=== PATIENT | female | born 1995 | race Caucasian/White ===

== ENCOUNTER 2017-05-13 14:31 | Emergency (ER) | payer OTHER ==
[~2017-05-13] VITALS: Ht 152.4 cm; Wt 68.0 kg
[~2017-05-13 14:31] MED LIST: GENT5DRO28 RIGHT EYE
[2017-05-13 14:34] VITALS: Ht 152.4 cm; Wt 68.0 kg
[2017-05-13] MEDS ORDERED: ONDANSETRON (ODT) 4 MG TAB ODT STA (15:53)
[2017-05-13 16:30] LABS: BASOPHILS % 0.2 % (0.0-2.0); EOSINOPHILS % 0.2 % (0.0-7.0); HEMATOCRIT 42.2 % (37.0-47.0); LYMPHOCYTES # 2.9 10^3/ul (0.8-2.9); LYMPHOCYTES % 29.1 % (18.0-55.0); MEAN CORPUSCULAR HEMOGLOBIN 29.9 pg (29.0-33.0); MEAN CORPUSCULAR HGB CONC 33.2 g/dl (32.0-37.0); MEAN CORPUSCULAR VOLUME 90.2 fl (72.0-104.0); MONOCYTE # 0.6 10^3/ul (0.3-0.9); MONOCYTES % 5.7 % (0.0-13.0); NEUTROPHIL # 6.5 10^3/ul (1.6-7.5); NEUTROPHILS % 64.5 % (30.0-74.0); PLATELET COUNT 293 10^3/UL (140-415); RED BLOOD COUNT 4.68 10^6/ul (4.20-5.40); RED CELL DISTRIBUTION WIDTH 12.2 % (11.5-14.5)
[2017-05-13 16:33] LABS: ADD UMIC NO; UR ASCORBIC ACID NEGATIVE (NEGATIVE); UR BILIRUBIN (Dip) NEGATIVE (NEGATIVE); UR BLOOD (Dip) NEGATIVE (NEGATIVE); UR CLARITY CLEAR (CLEAR); UR COLOR STRAW (YELLOW); UR GLUCOSE (Dip) NEGATIVE (NEGATIVE); UR KETONES (Dip) NEGATIVE (NEGATIVE); UR LEUKOCYTE ESTERASE (Dip) NEGATIVE Leu/ul (NEGATIVE); UR NITRITE (Dip) NEGATIVE (NEGATIVE); UR SPECIFIC GRAVITY (Dip) 1.013 (1.003-1.030); UR TOTAL PROTEIN (Dip) NEGATIVE (NEGATIVE); UR UROBILINOGEN (Dip) NEGATIVE (NEGATIVE)
[2017-05-13 16:48] LABS: ALBUMIN 4.8 g/dl (3.3-4.9); ALBUMIN/GLOBULIN RATIO 1.33; BILIRUBIN,INDIRECT 0.1 mg/dl (0-1.1); BILIRUBIN,TOTAL 0.1 mg/dl (0.2-1.3); CALCIUM 9.7 mg/dl (8.4-10.2); CREATININE 0.56 mg/dl (0.44-1.00); POTASSIUM 4.5 mmol/L (3.5-5.1); TOTAL PROTEIN 8.4 g/dl (6.1-8.1)
[2017-05-13] MEDS ORDERED: ONDA8TAB14 PO (16:56)
[2017-05-13] MEDS ORDERED: BISM262O23 PO (16:56)
[2017-05-13] MEDS ORDERED: AZIT500T3 PO (16:56)
--- NOTE | 2017-05-13 16:59 | ERD ---
ER Documentation Chief Complaint Date/Time DATE: 05/13/17 TIME: 16:57 Chief Complaint vomiting x 1 , diarrhea x 2 HPI This 21-year-old female presents with diarrhea for last 3 weeks. Is watery. There is no blood or mucus. She has had some vomiting over the last day. She denies fevers. She denies foreign travel she has no sick contacts. She denies . She is some mild intermittent crampy lower abdominal pain. Denies any right-sided or sustained pain ROS All systems reviewed and are negative except as per history of present illness. Medications Home Meds Active Scripts Bismuth Subsalicylate* (Pepto-Bismol*) 262 Mg/15 Ml Oral.susp, 15 ML PO Q3H Y for DIARRHEA for 5 Days, ML Prov:HOLLI PARKER MD 05/13/17 Ondansetron (Ondansetron Odt) 8 Mg Tab.rapdis, 8 MG PO Q6H Y for NAUSEA AND/OR VOMITING, #8 TAB Prov:HOLLI PARKER MD 05/13/17 Azithromycin* (Zithromax*) 500 Mg Tablet, 500 MG PO DAILY for 3 Days, TAB Prov:HOLLI PARKER MD 05/13/17 Gentamicin Sulfate* (Gentamicin Sulfate* Ophth) 0.3% - 5 Ml Drops, 1 DROP RIGHT EYE Q4 for 5 Days, EA Prov:BONNY CEBALLOS PA-C 03/09/15 Allergies Allergies: Coded Allergies: No Known Allergy (Unverified , 03/09/15) PMhx/Soc History of Surgery: No Anesthesia Reaction: No Hx Neurological Disorder: No Hx Respiratory Disorders: No Hx Cardiac Disorders: No Hx Psychiatric Problems: No Hx Miscellaneous Medical Probl: Yes (seasonal allergies) Hx Alcohol Use: No Hx Substance Use: No Hx Tobacco Use: No Smoking Status: Never smoker Physical Exam Vitals Vital Signs Date Time Temp Pulse Resp B/P Pulse Ox O2 Delivery O2 Flow Rate FiO2 05/13/17 14:34 98.1 80 18 137/73 99 Physical Exam Const: [] Alert, [id number]. Head: Atraumatic Eyes: Normal Conjunctiva ENT: Normal External Ears, Nose and Mouth. Neck: Full range of motion..~ No meningismus. Resp: Clear to auscultation bilaterally Cardio: Regular rate and rhythm, no murmurs Abd: Soft, non tender, non distended. Normal bowel sounds Skin: No petechiae or rashes Back: No midline or flank tenderness Ext: No cyanosis, or edema Neur: Awake and alert Psych: Normal Mood and Affect Result Diagram: 05/13/17 1605 05/13/17 1605 Results 24 hrs Laboratory Tests Test 05/13/17 16:05 White Blood Count 10.010^3/ul Red Blood Count 4.6810^6/ul Hemoglobin 14.0g/dl Hematocrit 42.2% Mean Corpuscular Volume 90.2fl Mean Corpuscular Hemoglobin 29.9pg Mean Corpuscular Hemoglobin Concent 33.2g/dl Red Cell Distribution Width 12.2% Platelet Count 76238^3/UL Mean Platelet Volume 11.0fl Neutrophils % 64.5% Lymphocytes % 29.1% Monocytes % 5.7% Eosinophils % 0.2% Basophils % 0.2% Nucleated Red Blood Cells % 0.0/100WBC Neutrophils # 6.510^3/ul Lymphocytes # 2.910^3/ul Monocytes # 0.610^3/ul Eosinophils # 0.010^3/ul Basophils # 0.010^3/ul Nucleated Red Blood Cells # 0.010^3/ul Urine Color STRAW Urine Clarity CLEAR Urine pH 8.0 Urine Specific [place] 1.013 Urine Ketones NEGATIVEmg/dL Urine Nitrite NEGATIVEmg/dL Urine Bilirubin NEGATIVEmg/dL Urine Urobilinogen NEGATIVEmg/dL Urine Leukocyte Esterase NEGATIVELeu/ul Urine Hemoglobin NEGATIVEmg/dL Urine Glucose NEGATIVEmg/dL Urine Total Protein NEGATIVEmg/dl Sodium Level 140mmol/L Potassium Level 4.5mmol/L Chloride Level 102mmol/L Carbon Dioxide Level 29mmol/L Anion Gap 14 Blood Urea Nitrogen 10mg/dl Creatinine 0.56mg/dl Glucose Level 100mg/dl Calcium Level 9.7mg/dl Total Bilirubin 0.1mg/dl Direct Bilirubin 0.00mg/dl Indirect Bilirubin 0.1mg/dl Aspartate Amino Transf (AST/SGOT) 25IU/L Alanine Aminotransferase (ALT/SGPT) 35IU/L Alkaline Phosphatase 71IU/L Total Protein 8.4g/dl Albumin 4.8g/dl Globulin 3.60g/dl Albumin/Globulin Ratio 1.33 Current Medications Medications (Trade) Dose Ordered Sig/Natalya Route PRN Reason Start Time Stop Time Status Last Admin Dose Admin Ondansetron HCl (Zofran Odt) 8 mg ONCE STAT ODT 05/13/17 15:53 05/13/17 15:55 DC 05/13/17 16:20 Procedures/MDM She is given Zofran 8 mg of mouth. CBC and CMP and lipase normal. Urine is negative for signs of infection, glucose, blood and hCG is negative. Patient presents with vomiting diarrhea with vomiting for 1 day and diarrhea for 3 weeks. She will treated empirically for infectious diarrhea with Zithromax given Zofran for vomiting discharged home with observation, return precautions and observation. Departure Diagnosis: Primary Impression: Vomiting and diarrhea Condition: Stable Patient Instructions: Vomiting And Diarrhea, Nonspecific (Adult) Additional Instructions: Examinations normal today. We will treat for infection given the duration. Recheck with primary doctor or for new or worsening symptoms. HOLLI PARKER MD May 13, 2017 16:59
[2017-05-13 17:23] VITALS: BP 141/73; PULSE 70; RESP 17; TEMP 98.3
== END 2017-05-13 17:23 | disposition home or self-care (01) ==
LOC: FTE 14:31
DX: R11.10 Vomiting, unspecified (principal); R19.7 Diarrhea, unspecified
CPT/HCPCS: 36415; 80053; 81003; 85025; 99283